=== PATIENT | male | born 2000 | race Caucasian/White ===

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

== ENCOUNTER 2022-06-27 10:29 | Emergency (ER) | payer SELFPAY ==
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
[2022-06-27 10:34] VITALS: BP 148/94; PULSE 89; RESP 18; TEMP 36.8; O2SAT 100
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
[2022-06-27] MEDS: KETOROLAC (*BKC) 60 MG/2 ML VIAL IM (13:11)
== END 2022-06-27 13:30 | disposition home or self-care (01) ==
PROVIDERS: Emergency Provider Physician Assistant
DX: S39.012A Strain of muscle, fascia and tendon of lower back, initial encounter (principal); S32.030D Wedge compression fracture of third lumbar vertebra, subsequent encounter for fracture with routine healing; S22.080D Wedge compression fracture of T11-T12 vertebra, subsequent encounter for fracture with routine healing; F17.290 Nicotine dependence, other tobacco product, uncomplicated; M51.36 Other intervertebral disc degeneration, lumbar region; X58.XXXA Exposure to other specified factors, initial encounter; V49.9XXD Car occupant (driver) (passenger) injured in unspecified traffic accident, subsequent encounter
CPT/HCPCS: 72131; 96372; 99284; J1885